=== PATIENT | male | born 1965 | race Caucasian/White ===

== ENCOUNTER 2018-03-10 16:12 | Outpatient (CLI) | payer OTHER ==
[2018-03-10 18:07] LABS: #Eosinphils 0.1 thou/uL (0.0-0.7); #Lymphocytes 1.2 thou/uL (1.20-3.40); #Monocytes 0.5 thou/uL (0.11-0.59); %Basophils 0.7 % (0.0-1.0); %Eosinophils 2.8 % (0.0-10.0); %Lymphocytes 23.9 % (21.0-51.0); %Monocytes 10.1 % (0.0-10.0); %Neutrophils 62.5 % (42.0-75.0); Hemoglobin 15.3 g/dL (14.0-18.0); Mean Corpuscular HGB CONC 34.6 g/dL (32.0-36.0); Mean Corpuscular Hemoglobin 32.6 pg (27.0-31.0); Mean Corpuscular Volume 94.3 fL (78.0-98.0); Mean Platelet Volume 8.6 fL (7.4-10.4); Platelet Count 156 thou/uL (130-400); RBC Distribution Width 11.3 % (11.5-14.5); White Blood Cell (WBC) Count 4.8 thou/uL (4.8-10.8)
== END 2018-03-10 16:13 | disposition home or self-care (01) ==
LOC: LABBT 16:12
PROVIDERS: ATTEND Orthopaedic Surgery Hand Surgery
DX: Z01.812 Encounter for preprocedural laboratory examination (principal); M76.40 Tibial collateral bursitis [Pellegrini-Stieda], unspecified leg
CPT/HCPCS: 85025

== ENCOUNTER 2018-03-19 08:10 | Day surgery (SDC) | payer OTHER ==
[2018-03-10 16:26] VITALS: BMI 31.0
[2018-03-19] MEDS ORDERED: CEFAZOLIN/Water 2 GM/20 ML SYRINGE ONE (08:26)
[2018-03-19] MEDS ORDERED: PROPOFOL 200 MG/20 ML VIAL ONE (10:09)
[2018-03-19] MEDS ORDERED: Bacitracin Zinc Ointment 30 gm TUBE ONE (11:05)
[2018-03-19] MEDS ORDERED: Betamet Acet/Betamet Na Ph 30 MG/5 ML VIAL ONE ×2 (11:05→11:42)
[2018-03-19] MEDS ORDERED: Sodium Chloride 0.9% 10 ML ONE (11:05)
[2018-03-19] MEDS ORDERED: Bupivacaine PF 0.5% 30 ML VIAL ONE (11:05)
[2018-03-19] MEDS ORDERED: Ketorolac Tromethamine 30 MG/ML VIAL ONE ×2 (12:52)
[2018-03-19] MEDS ORDERED: HYDROcodone/Acetaminophen 5/325 mg Tablet ONE (14:00)
--- NOTE | 2018-03-22 13:03 | OP ---
DATE OF SURGERY: 03/19/2018 PREOPERATIVE DIAGNOSIS: Left thumb ganglion with radial osteophyte, interphalangeal joint left thumb . POSTOPERATIVE DIAGNOSIS: Left thumb ganglion with radial osteophyte, interphalangeal joint left thum b. PROCEDURES PERFORMED: 1. Left thumb interphalangeal arthrotomy with osteophyte excision. 2. Left thumb ganglion cyst, interphalangeal joint cystectomy. SPECIMEN REMOVED: Osteophyte plus ganglion 2.0 cm ganglia. Also, injection with 15 mL of 0.5% Thien ine and Celestone into the joint. FINDINGS: Left thumb cyst 2.0 cm ganglion type on the edge of the extensor tendon. ANESTHESIA: General LMA technique augmented by 15 mL metacarpophalangeal joint level Marcaine block 0.5%, no epinephrine. INDICATIONS: The patient had mass, did not disappear with rest, anti-inflammatory medicines or immob ilization. DESCRIPTION OF PROCEDURE: After successful general LMA technique by [employer] [employer], the limb wa s prepped and draped. The patient had a time out done appropriately. He is on no beta blockers. We then injected the metacarpophalangeal joint with a standard technique, radial and ulnar digital ne rve block using 15 mL of 0.5% Marcaine with epinephrine. We exsanguinated the limb and inflated tour niquet to 250 mmHg. A J-shaped incision was then centered over the mass, which was more radial, sanford ied around the base of the mass at the dorsal interphalangeal joint across the interphalangeal joint and 5 mm proximal in the opposite side J-shaped incision. We then elevated the nerve much as p ossible and found the mass began to separate it distally from the base of the nail bed and then lifte d of all tissue. We spared the superficial nerves to be found where it had a stalk going into the aracelis int just at the radial edge of the extensor tendon. We lift up this radial edge, made arthrotomy fol lowed the stalk and medial underneath risk of osteophyte that was somewhat loose in approximately 2 m m to 3 mm in diameter. We removed this as well. The opened up joint capsule irrigated, some minimal amount of flattened but no other arthritic changes. The mass was sent as a specimen en bloc, osteophytes removed, irrigated with 500 mL normal saline wit h release of tourniquet. Once released the tourniquet, we will consider this as mechanisms intact, w ould not do a repair. Finally with hemostasis obtained, we closed the wound with interrupted 4-0 Mon ocryl subcutaneous closure and the skin was reapproximated with 4-0 nylon interrupted mattress patter n. Bulky dressing was applied. Volar splint with thumb spica and the patient left the operating octavio m without evidence of anesthetic or operative complication.
--- NOTE | 2018-03-24 08:03 | OP ---
DATE OF PROCEDURE: 03/19/2018 PREOPERATIVE DIAGNOSES: 1. Left thumb ganglion with possible osteophyte findings. 2. Left thumb ganglion 2 cm with stalk in the joint on the radial aspect of the thumb phalangeal aaron nt where at the opening of the joint there was an osteophyte approximately 3 mm x 2 mm where the stal k entered the joint. PROCEDURE PERFORMED: 1. Left thumb interphalangeal joint arthrotomy, osteophyte excision. 2. Left thumb ganglion cystectomy. Findings of osteophyte plus ganglion 2.0 cm. INJECTABLE: Yes. 15 mL 0.5% Marcaine. ESTIMATED BLOOD LOSS: 10 mL. SURGEON: Dr. Gwyn Plummer TOURNIQUET TIME: 8 minutes. ANESTHESIA: General LMA technique augmented by 15 mL 0.5% Marcaine with confirmation of block level. INDICATIONS: Pain with a mass at the thumb which appeared to be ganglion. DESCRIPTION OF PROCEDURE: After successful general LMA technique the limb was prepped and draped. T he patient had timeout done appropriately and the limb underwent prepping and draping. The patient i mmediately had the thumb anesthetized with 15 mL of 0.5% Marcaine block at the metacarpal phalangeal level. We then exsanguinated the limb, inflated the tourniquet to 250 mmHg pressure, began by a J-sh aped incision centered over the mass at the interphalangeal joint of the thumb. Carried through skin and subcutaneous tissue, leaving the blood vessels in the same plane as the ____ and found underneath the J incision transverse level over the joint a 2 cm ganglion. We immediately dissected it from di stal back to proximal. When we got proximal we noticed that it was greatly entangled with the joint so we made at the mid radial aspect of the interphalangeal joint a thumb incision, carried through sk in and subcutaneous tissue, noticed that there was an osteophyte that was approximately 2.5 to 2 mm. ____. The patient had the ganglion completely shelled, the extensor tendon was intact although we had done somewhat near modified tenotomy to elevate the mass off of the tendon and see its full extent. There was no gaps with past flexion or extension. The patient then had the mass sent to the lab, small osteophyte which was removed sent to the lab. W e inspected the joint, there were no other osteophytes and then the patient had the tourniquet releas ed and hemostasis obtained. Closed the wound in simple fashion with 4-0 Nylon interrupted pattern. A bulky dressing was applied under the splint.
== END 2018-03-19 14:12 | disposition home or self-care (01) ==
LOC: SDC 08:10
PROVIDERS: ATTEND Orthopaedic Surgery Hand Surgery
PROC: 0RJ Upper Joints, Inspection (ICD-10-PCS; principal; 2018-03-19)
PROC: 0LB80ZZ Excision of Left Hand Tendon, Open Approach (ICD-10-PCS; principal; 2018-03-19)
DX: M67.442 Ganglion, left hand (principal); M25.742 Osteophyte, left hand; I10 Essential (primary) hypertension; E78.5 Hyperlipidemia, unspecified; Z79.899 Other long term (current) drug therapy
CPT/HCPCS: 88304; A4216; J0702; J1885; J2704; J3490; S0020

== ENCOUNTER 2019-12-20 09:27 | Inpatient (IN) | payer OTHER ==
[2019-12-20 09:56] LABS: #Eosinphils 0.1 thou/uL (0.0-0.7); #Lymphocytes 1.2 thou/uL (1.20-3.40); #Monocytes 0.5 thou/uL (0.11-0.59); %Basophils 0.5 % (0.0-1.0); %Eosinophils 1.6 % (0.0-10.0); %Lymphocytes 25.3 % (21.0-51.0); %Neutrophils 61.6 % (42.0-75.0); Hemoglobin 15.7 g/dL (14.0-18.0); Mean Corpuscular Hemoglobin 30.8 pg (27.0-31.0); Mean Corpuscular Volume 93.3 fL (78.0-98.0); Mean Platelet Volume 8.7 fL (7.4-10.4); Platelet Count 196 thou/uL (130-400); RBC Distribution Width 11.5 % (11.5-14.5); White Blood Cell (WBC) Count 4.8 thou/uL (4.8-10.8)
--- NOTE | 2019-12-20 09:59 | RAD ---
RADIOGRAPH CHEST 1 VIEW: DATE: 12/20/2019 TIME: 9:20 AM HISTORY: 54-year-old male with dyspnea COMPARISON: 10/28/2010 FINDINGS: There is a questionable new small focal patchy infiltrate at the right medial lower lung zone. Altern atively, this could be artifact. The rest of the visualized lung hung are clear. No pneumothorax. No cardiomegaly or mediastinal widening. Lateral costophrenic angles are sharp. Mild dextroscoliosis of T-spine. IMPRESSION: Questionable subtle faint early right lower lung zone infiltrate versus artifact. Recommend follow-up .
[2019-12-20] MEDS ORDERED: Ondansetron PF 4 MG/2 ML Vial ONE (10:01)
[2019-12-20 10:18] LABS: ALT (SGPT) 30 U/L (8-55); AST (SGOT) 40 U/L (5-34); Albumin 4.7 g/dL (3.5-5.0); Alkaline Phosphatase 71 U/L (40-110); Anion Gap 13 mmol/L (10-20); BUN (Urea Nitrogen) 16 mg/dL (8.4-25.7); Bilirubin, Total 3.5 mg/dL (0.2-1.2); Calc. Creatinine Clearance 0 mL/min (70-130); Carbon Dioxide 29 mmol/L (22-29); Chloride 102 mmol/L (98-107); Estimated GFR-MDRD 71; Globulin 2.6 g/dL (2.4-3.5); Glucose 107 mg/dL (70-105); Potassium 4.1 mmol/L (3.5-5.1); Protein, Total 7.3 g/dL (6.0-8.3); Sodium 140 mmol/L (136-145)
[2019-12-20] MEDS ORDERED: Nitroglycerin 0.4 MG TAB (25 Tab Bottle) PO PRN (12:30)
[2019-12-20] MEDS ORDERED: Aspirin 325 mg Enteric Coated Tablet PO SCH (12:45)
[2019-12-20] MEDS ORDERED: Aspirin Chewable 81 MG TAB ONE (13:15)
--- NOTE | 2019-12-20 14:11 | HP ---
PRIMARY CARE PROVIDER: Dr. Huber Bernstien. CHIEF COMPLAINT: Shoulder pain. HISTORY OF PRESENT ILLNESS: Mr. Ventura is a pleasant 54-year-old gentleman, who was seen at [facility] following transfer from an urgent care clinic. He reports having a cardiac catheterization about 12 years ago. 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 He sees Dr. Farrar as an outpatient. His last stress test was on June 08, 2017 and was normal. He reports that he has been having on and off left shoulder discomfort over the last couple of weeks. He also reports feeling slightly nauseous since last night. He denies any leg swelling or cough. He reports gaining about 10 pounds weight over the last year. Over the last two weeks, he has also been having shortness of breath, worse with exertion. He denies any orthopnea or paroxysmal nocturnal dyspnea. He denies any fevers. He denies any chills. He presented to an urgent care clinic today. He reportedly told them that he had some nasal drip. COVID test was sent and he was transferred to [facility] for further management. REVIEW OF SYSTEMS: All systems were reviewed and found to be negative except for the pertinent positives mentioned above. PAST MEDICAL HISTORY: Coronary bridge artery, dyslipidemia, chronically elevated bilirubin and hypertension. PAST SURGICAL HISTORY: Cardiac catheterization in 2008, normal. SOCIAL HISTORY: The patient denies alcohol use, tobacco use, or recreational drug use. FAMILY HISTORY: Coronary artery disease in his father and cerebrovascular accident in his father. ALLERGIES: NO KNOWN DRUG ALLERGIES. CURRENT MEDICATIONS: Crestor 10 mg daily and metoprolol succinate PHYSICAL EXAMINATION: GENERAL: Mr. Ventura is awake and alert, not in acute distress. VITAL SIGNS: Blood pressure is 130/90, pulse rate 67, respiratory rate 17, and oxygen saturation 99% on room air. He is afebrile. EYES: No scleral icterus. No conjunctival pallor. ENT: Moist mucosal membranes. No oropharyngeal erythema or exudates. NECK: Supple, nontender, and trachea is midline. RESPIRATORY: Accessory muscles of breathing are not active. Chest wall movements are symmetric bilaterally. LUNGS: Clear to auscultation without wheeze, rhonchi, or crepitations. CARDIOVASCULAR: S1 and S2 are heard, regular. Peripheral pulses are palpable. ABDOMEN: Soft, nontender, bowel sounds are heard. NEUROLOGIC: Cranial nerves 2 through 12 are intact. MUSCULOSKELETAL: Power is 5/5 in all 4 extremities. SKIN: No rashes. LYMPHATIC: No cervical lymphadenopathy. PSYCHIATRIC: Normal mood, normal affect, the patient is oriented to person, place, and time. LABORATORY DATA: Mr. Ventura' labs and investigations were reviewed. A 12-lead electrocardiogram showed normal sinus rhythm, inverted T-waves in leads 3 and AVF. Chest x-ray showed questionable subtle faint early right lower lobe lung zone infiltrate versus artifact. He has an unremarkable CBC, elevated total bilirubin of 3.5, it was 4.0 on February 03, 2018, otherwise unremarkable comprehensive metabolic profile and normal troponin-I of less than 0.010. ASSESSMENT AND PLAN: Mr. Ventura is a pleasant 54-year-old gentleman, who was seen at [facility] on December 20, 2019. His problem list includes: 1. Left shoulder pain: It is atypical for cardiac etiology. However, he does endorse shortness of breath and given his cardiac history, I will arrange for a stress test and telemetry monitoring. This will be done after COVID-19 is ruled out. For now, I will continue him on aspirin. 2. Dyslipidemia: Continue statin. 3. Hypertension: Continue metoprolol. 4. Pneumonia: Questionable, patient does not have cough or fever. I will start antibiotics if he develops symptoms. 5. Elevated total bilirubin: Chronic, nil acute. Many thanks for allowing me to participate in your patient's care. Please feel free to contact me with any questions or concerns. LEVEL OF RISK: Moderate. LEVEL OF COMPLEXITY: Moderate. Job ID: [id number]
[2019-12-20 14:21] LABS: Troponin I Less than 0.010 ng/mL (< 0.028)
[2019-12-20 17:12] LABS: Troponin I Less than 0.010 ng/mL (< 0.028)
[2019-12-20] MEDS ORDERED: Melatonin 3 MG TAB PO PRN (22:00)
[2019-12-21 01:30] VITALS: BMI 33.1
[2019-12-21] MEDS: Aspirin 325 mg Enteric Coated Tablet PO SCH (08:18)
[2019-12-21] MEDS ORDERED: Acetaminophen/Codeine 30-300mg Tablet PO PRN (19:28)
--- NOTE | 2019-12-21 19:31 | PDOC.HOSPP ---
- Subjective Encounter Date: 12/21/19 Encounter Time: 19:29 Subjective: Pt seen for followup re: left shouklder pain. c/o ongoing left shoulder pain. No chest pain or shortness of breath at rest. - Objective Vital Signs & Weight: Vital Signs (12 hours) Temp Pulse Resp BP Pulse Ox 12/21/19 12:05 85 20 112/80 94 L 12/21/19 08:00 98.6 F 63 16 113/78 98 Weight Weight 243 lb 12.8 oz I&O: 12/20/19 12/21/19 12/22/19 06:59 06:59 06:59 Intake Total 1046 Balance 1046 Result Diagrams: 12/20/19 09:47 12/20/19 09:47 Additional Labs: Labs and MARs reviewed by me EKG Reviewed by me: Yes (Tele: NSR) Hospitalist ROS - Review of Systems Cardiovascular: denies: chest pain, palpitations, orthopnea, paroxysmal noc. dyspnea, edema, light headedness Gastrointestinal: denies: nausea, vomiting, abdominal pain, diarrhea, constipation, melena, hematochezia Musculoskeletal: reports: shoulder pain - Medication Medications: Active Medications Generic Name Dose Route Start Last Admin Trade Name Freq PRN Reason Stop Dose Admin Aspirin 325 mg 12/21/19 09:00 12/21/19 08:18 Ecotrin PO 325 mg DAILY CHASTITY Administration Melatonin 3 mg 12/20/19 22:00 12/20/19 22:22 Melatonin PO 3 mg HS PRN Administration Insomnia - Exam General - other findings: Obese Eye: anicteric sclera ENT: moist mucosa Neck: supple Heart: RRR Respiratory: CTAB Gastrointestinal: soft, non-tender Musculoskeletal: no muscle wasting Psychiatric: normal affect, normal behavior Hosp A/P (1) Left shoulder pain Code(s): M25.512 - PAIN IN LEFT SHOULDER Status: Acute (2) Shortness of breath Code(s): R06.02 - SHORTNESS OF BREATH Status: Chronic (3) Hyperlipidemia Code(s): E78.5 - HYPERLIPIDEMIA, UNSPECIFIED Status: Chronic Qualifiers: - Plan Pt awaiting 2D echo and stress test. COVID 19 being ruled out. Continue statin. PRN Tylenol #3 for shoulder pain.
[2019-12-22 05:22] LABS: #Basophils 0.1 thou/uL (0.0-0.2); #Eosinphils 0.1 thou/uL (0.0-0.7); #Lymphocytes 1.5 thou/uL (1.20-3.40); #Monocytes 0.6 thou/uL (0.11-0.59); #Neutrophils 3.4 thou/uL (1.40-6.50); %Eosinophils 1.2 % (0.0-10.0); %Monocytes 10.6 % (0.0-10.0); %Neutrophils 60.2 % (42.0-75.0); Hemoglobin 15.4 g/dL (14.0-18.0); Mean Corpuscular Hemoglobin 31.2 pg (27.0-31.0); Mean Corpuscular Volume 94.3 fL (78.0-98.0); Mean Platelet Volume 8.6 fL (7.4-10.4); Platelet Count 168 thou/uL (130-400); RBC Distribution Width 11.5 % (11.5-14.5); Red Blood Cell (RBC) Count 4.93 mill/uL (4.70-6.10); White Blood Cell (WBC) Count 5.6 thou/uL (4.8-10.8)
[2019-12-22 05:44] LABS: Anion Gap 11 mmol/L (10-20); BUN (Urea Nitrogen) 14 mg/dL (8.4-25.7); Calc. Creatinine Clearance 127 mL/min (70-130); Calcium 9.3 mg/dL (7.8-10.44); Carbon Dioxide 29 mmol/L (22-29); Chloride 103 mmol/L (98-107); Estimated GFR-MDRD 74; Glucose 103 mg/dL (70-105); Potassium 4.3 mmol/L (3.5-5.1); Sodium 139 mmol/L (136-145)
[2019-12-22] MEDS: Aspirin 325 mg Enteric Coated Tablet PO SCH (08:07)
[2019-12-22] MEDS ORDERED: Rosuvastatin 10 MG TAB PO SCH (09:00)
[2019-12-22] MEDS ORDERED: Ubidecarenone 50 MG CAP PO SCH (09:00)
[2019-12-22 11:56] LABS: SARS-CoV-2 MS2 Positive; SARS-CoV-2 N Gene Negative; SARS-CoV-2 S Gene Negative; SARS-CoV-2 orf1ab Negative
--- NOTE | 2019-12-22 15:17 | NM ---
EXAM: Nuclear medicine cardiac perfusion examination with ejection fraction HISTORY: Chest pain TECHNIQUE: Rest images: 11 mCi technetium 99m sestamibi Stress images: 32.8 mCi of technetium 9M sestamibi; treadmill stress using a Curry protocol COMPARISON: 03/11/2006 FINDINGS: Tomographic images: No fixed or reversible perfusion defects. Gated images: Normal wall motion and ejection fraction of 54%. EDV: 96 mL LHR: 0.4 TID: 1.0 IMPRESSION: No evidence of ischemia
[2019-12-22 17:25] VITALS: BP 118/70; TEMP 97
--- NOTE | 2019-12-23 03:38 | DIS ---
DATE OF ADMISSION: 12/20/2019 DATE OF DISCHARGE: 12/22/2019 PRIMARY CARE PROVIDER: Huber Bernstein MD DISCHARGE DIAGNOSES: 1. Shortness of breath. 2. Coronavirus disease-19 ruled out. 3. Left shoulder pain. 4. Chronic elevation of bilirubin. CONDITION OF PATIENT ON THE DAY OF DISCHARGE: Stable. I assessed Mr. Ventura on the day of discharge. He denies any chest pain or shortness of breath. Vital signs are stable. S1 and S2 are heard, regular. Lungs are clear to auscultation bilaterally. HOSPITAL COURSE: Mr. Ventura is a pleasant 54-year-old gentleman, who was admitted to [facility] on December 20, 2019 for left shoulder pain and shortness of breath. He was ruled out for COVID-19 and subsequently had a stress test, which is normal. Left ventricular ejection fraction was 54%. He had a normal BNP and negative D-dimer. He has been advised to follow up with primary care provider regarding shoulder pain. On the day of discharge, he has normal BMP, white count 5600, hemoglobin 15.4, and platelet count 168,000. No change was made to his pre-admission home medications. POST-ACUTE CARE FOLLOWUP: He has been advised to follow up with his primary care provider in 3 days and with his railroad hand, Dr. Farrar in 10 days. He has been advised to have 2D echocardiogram as outpatient. ACTIVITY: No restriction. DIET: Heart healthy. DISCHARGE DESTINATION: Home. Many thanks for allowing me to participate in your patient's care. Please feel free to contact me with any questions or concerns. Job ID: [id number]
--- NOTE | 2019-12-24 12:31 | EKG ---
Test Reason : Blood Pressure : / mmHG Vent. Rate : 068 BPM Atrial Rate : 068 BPM P-R Int : 176 ms QRS Dur : 094 ms QT Int : 384 ms P-R-T Axes : 034 006 -03 degrees QTc Int : 408 ms Normal sinus rhythm Normal ECG T wave inversion, III, aVF Confirmed by MARCELO ORTA DO ([id number]), general expeditor ZAIRE HOPE ([id number]) on 12/24/2019 12:30:56 PM Referred By: Confirmed By:MARCELO ORTA DO
== END 2019-12-22 17:25 | disposition home or self-care (01) | DRG 204 ==
LOC: ERS 09:27 → OBSVTOIN 11:50 → ERHOLD 11:50 → 2SW 17:39
PROVIDERS: ADMIT Internal Medicine; ATTEND Internal Medicine
DX: R06.02 Shortness of breath (principal); Z20.828 Contact with and (suspected) exposure to other viral communicable diseases; M25.512 Pain in left shoulder; E78.5 Hyperlipidemia, unspecified; I10 Essential (primary) hypertension; E80.6 Other disorders of bilirubin metabolism; Z82.49 Family history of ischemic heart disease and other diseases of the circulatory system
CPT/HCPCS: 36415; 71045; 78452; 80048; 80053; 83880; 84484; 85025; 85379; 87635; 93005; 93017; 94760; 96374; A9500; J2405; U0003

== ENCOUNTER 2020-10-02 20:02 | Emergency (ER) | payer BC, OTHER ==
[2020-10-02 20:43] LABS: #Eosinphils 0.1 thou/uL (0.0-0.7); #Lymphocytes 1.4 thou/uL (1.20-3.40); #Monocytes 0.5 thou/uL (0.11-0.59); %Eosinophils 1.7 % (0.0-10.0); %Lymphocytes 28.3 % (21.0-51.0); %Monocytes 9.2 % (0.0-10.0); %Neutrophils 59.8 % (42.0-75.0); Hemoglobin 15.1 g/dL (14.0-18.0); Mean Corpuscular HGB CONC 35.1 g/dL (32.0-36.0); Mean Corpuscular Hemoglobin 32.5 pg (27.0-31.0); Mean Corpuscular Volume 92.5 fL (78.0-98.0); Mean Platelet Volume 8.9 fL (7.4-10.4); Platelet Count 164 thou/uL (130-400); RBC Distribution Width 11.7 % (11.5-14.5); Red Blood Cell (RBC) Count 4.65 mill/uL (4.70-6.10)
[2020-10-02 20:55] LABS: PTT 27.4 sec (22.9-36.1); Prothrombin Time 12.9 sec (12.0-14.7)
[2020-10-02 21:06] LABS: ALT (SGPT) 23 U/L (8-55); AST (SGOT) 30 U/L (5-34); Albumin 4.1 g/dL (3.5-5.0); Alkaline Phosphatase 59 U/L (40-110); Anion Gap 15 mmol/L (10-20); BUN (Urea Nitrogen) 18 mg/dL (8.4-25.7); Bilirubin, Total 2.2 mg/dL (0.2-1.2); CK (CPK) 183 U/L (30-200); Calc. Creatinine Clearance 0 mL/min (70-130); Calcium 8.8 mg/dL (7.8-10.44); Carbon Dioxide 25 mmol/L (22-29); Chloride 103 mmol/L (98-107); Globulin 2.5 g/dL (2.4-3.5); Glucose 135 mg/dL (70-105); Lipase 46 U/L (8-78); Protein, Total 6.6 g/dL (6.0-8.3); Sodium 139 mmol/L (136-145)
[2020-10-02] MEDS ORDERED: Famotidine/PF 20 mg/2ml Vial ONE (21:23)
[2020-10-02] MEDS ORDERED: Ondansetron PF 4 MG/2 ML Vial ONE (21:23)
[2020-10-02 23:20] LABS: Troponin I Less than 0.010 ng/mL (< 0.028)
== END 2020-10-02 23:45 | disposition home or self-care (01) ==
LOC: ERS 20:02
DX: R07.9 Chest pain, unspecified (principal); R20.0 Anesthesia of skin; E78.5 Hyperlipidemia, unspecified; I10 Essential (primary) hypertension
CPT/HCPCS: 36415; 71045; 80053; 82550; 83690; 83735; 84484; 85025; 85610; 85730; 93005; 94760; 96374; 96375; J2405; S0028